=== PATIENT | female | born 1945 | race Caucasian/White ===

== ENCOUNTER → 2019-04-10 17:30 | Outpatient (CLI) | payer MEDICARE, SELFPAY ==
--- NOTE | 2019-04-10 17:36 | DI.MRI.S_ITS ---
PROCEDURE: MR SHOULDER RT WO CON INDICATIONS: OTHER ISTABILITY RIGHT SHOULDER TECHNIQUE: Noncontrast oblique coronal T2 fast spin echo with fat saturation, oblique sagittal T1 spin echo and T2 fast spin echo with fat saturation, axial T1 spin echo and T2 fast spin echo with fat saturation through the shoulder. COMPARISON: None. FINDINGS: Image quality: Excellent. Rotator cuff: Full-thickness tear of the anterior supraspinatus tendon is seen measuring approximately 1 cm on coronal image 12 series 9. This measures approximately 9 mm on sagittal image 8 series 11. Infraspinatus tendinopathy and low-grade bursal surface fraying. Teres minor appears intact. Subscapularis tendon appears intact. Borderline atrophy of the supraspinatus muscle. Diffuse mild fatty infiltration of the remaining rotator cuff muscles. Bones and bursae: Small-moderate Hill-Sachs fracture deformity with associated marrow edema Moderate acromioclavicular joint degeneration. Acromion demonstrates conventional anatomy, without an os acromiale. Mild subacromial-subdeltoid bursitis. Capsule and soft tissues: Minimal irregularity of the anteroinferior labrum on image 13 series 7, and complex posterior labral tear is noted. No definite posterior subluxation of the humeral head relative to glenoid. Long head of the biceps tendon intact. The rotator interval appears normal, without fibrosis. Coracohumeral ligament intact. IMPRESSION: Full-thickness tear of the anterior supraspinatus tendon. Borderline atrophy of the muscle. Infraspinatus tendinopathy and low-grade bursal surface fraying. Small-moderate Hill-Sachs fracture, with associated marrow edema in keeping with acute or subacute age. Mild subacromial-subdeltoid bursitis. Posterior labral tear with macerated appearance. Additional minimal irregularity of the anteroinferior labrum suggestive of tear versus age related degeneration. Dictated by: Sonny Antunez M.D. on 04/11/2019 at 8:30 Approved by: Sonny Antunez M.D. on 04/11/2019 at 8:38
== END ==
PROVIDERS: Visit Provider Orthopaedic Surgery
DX: M25.311 Other instability, right shoulder (principal); M75.121 Complete rotator cuff tear or rupture of right shoulder, not specified as traumatic; S43.491A Other sprain of right shoulder joint, initial encounter; S42.291A Other displaced fracture of upper end of right humerus, initial encounter for closed fracture; M75.51 Bursitis of right shoulder; M19.011 Primary osteoarthritis, right shoulder
CPT/HCPCS: 73221

== ENCOUNTER 2019-04-24 09:23 | Emergency (ER) | payer MEDICARE, SELFPAY | END 2019-04-24 09:32 | disposition left against medical advice (07) | LOC: ED 09:31 ==